=== PATIENT | female | born 1980 | race Caucasian/White ===

== ENCOUNTER → 2021-05-12 | Outpatient (CLI) | payer OTHER ==
[2021-05-13 05:07] LABS: RUBELLA AB IGG-REFLAB 3.61 index (Immune >0.99); RUBEOLA (MEASLES) IGG 72.9 AU/mL (Immune >16.4)
== END | disposition home or self-care (01) ==
LOC: LABPV 10:27
PROVIDERS: ATTEND Internal Medicine
DX: Z02.1 Encounter for pre-employment examination (principal)
CPT/HCPCS: 86735; 86762; 86765; 86787